=== PATIENT | male | born 1975 | race Caucasian/White ===

== ENCOUNTER 2017-07-15 11:04 | Observation (INO) ==
[2017-07-15] MEDS ORDERED: Nitroglycerin 0.4 MG TAB.SUBL SL ONE (11:14)
[2017-07-15] MEDS ORDERED: Aspirin 81 MG TAB.CHEW PO ONE (11:14)
[2017-07-15 11:56] LABS: Basophils % 0.4 %; Eosinophils # 0.1 K/mcL (0.0-0.6); Hemoglobin 17.8 g/dL (12.9-16.9); Immature Granulocytes % 0.2 % (0-4); Lymphocytes % 18.2 %; Mean Corpuscular HGB Conc 35.6 g/dL (31.6-35.5); Mean Corpuscular Hemoglobin 32.5 pg (28.0-33.3); Mean Corpuscular Volume 91.2 fL (83.0-100.0); Mean Platelet Volume 8.9 fL (9.4-12.4); Monocytes # 0.7 K/mcL (0.0-1.3); Monocytes % 6.6 %; Platelet Count 281 K/mcL (140-400); Red Blood Count 5.48 M/mcL (4.19-5.50); Red Cell Distribution Width 11.5 % (11.5-14.5); Segmented Neutrophils % 73.6 %
[2017-07-15 12:07] LABS: Calcium 10.2 mg/dL (8.6-10.3); Carbon Dioxide 24 mEq/L (23-29); Chloride 105 mEq/L (98-107); Potassium 3.7 mEq/L (3.5-5.1); Sodium 136 mEq/L (136-145)
[2017-07-15 12:13] LABS: BUN/Creatinine Ratio 17 (6-26); Blood Urea Nitrogen 15 mg/dL (6-20); Glucose 115 mg/dL (70-105); Osmolality,Calculated 284 (280-300); eGFR For African Americans > 60 (> 60); eGFR For Non-African Americans > 60 (> 60)
--- NOTE | 2017-07-15 12:55 | Emergency Department Note ---
Disposition Clinical Impression: Chest pain Qualifiers: Chest pain type: unspecified Qualified Code(s): R07.9 - Chest pain, unspecified Disposition: Admitted As Inpatient Chest Pain HPI - General Chief Complaint: ED Chest Pain Stated Complaint: CP Time Seen by Provider: 07/15/17 11:07 Source: patient, family Mode of arrival: ambulatory Limitations: no limitations Vital Signs Reviewed: Yes Nursing Notes Reviewed: Yes - History of Present Illness HPI Narrative: Patient presents to the hospital for evaluation of chest pain. Patient states chest pain has been intermittent exertional over the last year. Patient had workup done 8 [facility] where he was told he needed a cardiac catheterization was a little complete secondary to needing to move here to [place] for undisclosed circumstances. The patient states that over the last couple of days his chest pain has gotten worse. Patient has decreased ability to ambulate or walk up steps without chest pain. Chest pain is better with rest. This time the patient complains of current chest pain 610 described as pressure. He also has body aches and a mild cough that he is concerned about influenza or pneumonia. Patient will undergo further evaluation and likely admission for cardiac rule out. Severity scale (1-10): 8 - Related Data Home Medications Medication Instructions Recorded Confirmed Albuterol Sulfate [Albuterol 1 puff IH AD 12/08/16 07/15/17 Inhaler] Gabapentin [Neurontin] 800 mg PO TID 12/08/16 07/15/17 Tiotropium [Spiriva] 1 puff IH BID 12/08/16 07/15/17 Aspirin [Lo-Dose Aspirin EC] 81 mg PO DAILY 12/24/16 07/15/17 Cholecalciferol (D-3) [Vitamin D] 1,000 unit PO DAILY 12/24/16 07/15/17 Multivitamin [One Daily 1 each PO DAILY 12/24/16 07/15/17 Multivitamin] [place]-3/Dha/Epa/Fish Oil [Fish Oil 1 each PO DAILY 12/24/16 07/15/17 1,000 mg Softgel] Vitamin E (Dl,Tocopheryl Acet) 1,000 unit PO DAILY 12/24/16 07/15/17 [Vitamin E] Buprenorphine HCl/Naloxone HCl 1 film PO BID 07/15/17 07/15/17 [Suboxone 8 mg-2 mg Sl Film] Ciclopirox [Penlac] 1 appl TP DAILY 07/15/17 07/15/17 Fluticasone/Salmeterol [Advair 1 puff IH BID 07/15/17 07/15/17 250-50 Diskus] Ibuprofen [Motrin] 800 mg PO Q8HR PRN 07/15/17 07/15/17 Omeprazole [PriLOSEC] 40 mg PO DAILY 07/15/17 07/15/17 Ranitidine HCl [Zantac] 300 mg PO DAILY 07/15/17 07/15/17 Ropinirole HCl [Requip] 0.5 mg PO HS 07/15/17 07/15/17 Allergies Allergy/AdvReac Type Severity Reaction Status Date / Time Penicillins Allergy Anaphylaxis Verified 12/24/16 08:42 Review of Systems: CONSTITUTIONAL: No weight loss, fever, chills, weakness or fatigue. HEENT: Eyes: No visual changes. Ears, Nose, Throat: No hearing loss, difficulty talking or unable to swallow. SKIN: No rash or itching. CARDIOVASCULAR: Chest pain RESPIRATORY: Cough GASTROINTESTINAL: No anorexia, nausea, vomiting or diarrhea. No abdominal pain or blood. GENITOURINARY: No burning on urination or hematuria. NEUROLOGICAL: No headache, dizziness, syncope, paralysis, ataxia, numbness or tingling in the extremities. No change in bowel or bladder control. MUSCULOSKELETAL: Body aches Chest Pain PMH - Past Medical History Medical history: Reports: no medical history Psychiatric history: Reports: no psych history - Social History Smoking Status: Current every day smoker Alcohol use: Reports: none Drug use: Reports: none Physical Exam General: Well appearing, nontoxic, no acute distress Head: Normocephalic Atraumatic Eyes: PERRL, EOMI ENT: Airway patent, no stridor; very poor dentition Neck: supple, no meningismus Chest: Lungs clear to auscultation bilateral Cardiac: Regular rate and rhythm, no murmurs, rubs or gallops Abdomen: soft, nontender, nondistended; no guarding, rebound, or tenderness to percussion Musculoskeletal: Calves symmetric, nontender, no palpable cord Skin: No rash, normal skin tone Neuro: Alert and Oriented to person, place, and time; No focal deficit, CN 2-12 symmetric and intact - General General appearance: alert, in no apparent distress Course - Reevaluation(s) Reevaluation #1: Patient's chest pain did improve with nitroglycerin. Patient does state that he has some heaviness in his arm still. Left arm. Will request [facility] medical records. Patient be admitted for chest pain. - Consultations Consultation #1: Discussed with hospitalist. Patient accepted for admission. Vital Signs Temperature 99.5 F 07/15/17 11:15 Pulse Rate 85 07/15/17 11:15 Respiratory Rate 11 07/15/17 11:15 Blood Pressure 130/91 07/15/17 11:15 O2 Sat by Pulse Oximetry 98 07/15/17 11:15 Temperature 99.0 F 07/15/17 18:46 Pulse Rate 70 07/15/17 18:46 Respiratory Rate 17 07/15/17 18:46 Blood Pressure 115/76 07/15/17 18:46 O2 Sat by Pulse Oximetry 97 07/15/17 18:46 Oxygen Delivery Oxygen Delivery Room Air Chest Pain - Medical Records Medical records reviewed: Yes I reviewed the patient's medical records. - Lab Data Lab results reviewed: Yes I reviewed the patient's lab results. Result diagrams: 07/15/17 11:37 07/15/17 11:37 Lab Results 07/15/17 07/15/17 07/15/17 Range/Units 11:37 11:37 11:37 WBC 10.9 (4.3-11.1) K/mcL RBC 5.48 (4.19-5.50) M/mcL Hgb 17.8 H (12.9-16.9) g/dL Hct 50.0 (37.5-50.1) % MCV 91.2 (83.0-100.0) fL MCH 32.5 (28.0-33.3) pg MCHC 35.6 H (31.6-35.5) g/dL RDW 11.5 (11.5-14.5) % Plt Count 281 (140-400) K/mcL MPV 8.9 L (9.4-12.4) fL Immature Gran % 0.2 (0-4) % Seg Neutrophils % 73.6 % Lymphocytes % 18.2 % Monocytes % 6.6 % Eosinophils % 1.0 % Basophils % 0.4 % Neutrophils # 8.0 (1.6-8.9) K/mcL Lymphocytes # 2.0 (0.6-4.6) K/mcL Monocytes # 0.7 (0.0-1.3) K/mcL Eosinophils # 0.1 (0.0-0.6) K/mcL Basophils # 0.0 (0.0-0.2) K/mcL Sodium 136 (136-145) mEq/L Potassium 3.7 (3.5-5.1) mEq/L Chloride 105 (98-107) mEq/L Carbon Dioxide 24 (23-29) mEq/L BUN 15 (6-20) mg/dL Creatinine 0.89 (0.70-1.30) mg/dL Est GFR ( Amer) > 60 (> 60) Est GFR (Non-Af Amer) > 60 (> 60) BUN/Creatinine Ratio 17 (6-26) Glucose 115 H (70-105) mg/dL Calculated Osmolality 284 (280-300) Calcium 10.2 (8.6-10.3) mg/dL Troponin I < 0.03 (< 0.04) ng/mL - Radiology Data Radiology results reviewed: Yes I reviewed the patient's radiology results. - EKG Data EKG attestation: Yes I reviewed and interpreted this EKG. EKG results narrative: Sinus rhythm with significant ryja-vx-cmne variation and sinus arrhythmia. Ventricular rate 94.A 185. QRS 87. QTC 365. Attestation Statement - Attestation Attestation: I examined this patient and my medical decision-making was reviewed with the Resident Physician. I agree with the documented findings, disposition and treatment plan as described except to the extent set forth below. Patient to ED describing chest pressure. Increasing over the past 2 days. Patient has a history of similar episodes. He states he has had a positive stress test in the past but did not follow through with a heart catheter. On examination he is in no distress. Lungs clear. Plan. EKG does not show any acute ischemic changes. He will be admitted for further cardiac workup. Troponin is negative..
[2017-07-15] MEDS ORDERED: Naloxone 0.4 MG/ML INJ IVP PRN (13:22)
--- NOTE | 2017-07-15 13:31 | Internal Med History&Physical ---
<Terrance Guillen J - Last Filed: 07/15/17 13:24> Date of Encounter: 07/15/17 Time of Encounter: 13:24 Assessment and Plan (1) Chest pain Current visit: Yes Status: Acute ASSESSMENT: - Presents with a 1-year h/o left sided chest pain. There is some concern for CAD. He has a h/o HTN, and is a daily smoker. He reports having a positive stress test at the [facility] a couple of years ago. At that time he was instructed that he needed a heart cath but he moved from [place] and has not follow up or reestablished with a top carrier. *Pericarditis - unlikely *Pneumonia - no infiltrate on CXR PLAN: - cardiac enzymes x 2 q 6 hr - ASA 81mg dialy - O2 by NC PRN to keep SpO2 greater than 92% - CBC, BMP in AM - Fasting lipids - 2D Echo - Cardiology consult pending results of TTE and exercise stress Qualifiers: Chest pain type: unspecified Qualified Code(s): R07.9 - Chest pain, unspecified (2) Polycythemia Current visit: Yes Status: Acute Long-standing smoking history and COPD. The chronic hypoxemia is likely contributing to the secondary polycythemia. HGB 17 (3) HTN (hypertension) Current visit: Yes Status: Acute Reports a h/o HTN, however is not taking an antiHTN medications. Currently stable, continue to monitor. Add antiHTN medications should he become hypertensive Qualifiers: Hypertension type: essential hypertension Qualified Code(s): I10 - Essential (primary) hypertension (4) COPD (chronic obstructive pulmonary disease) Current visit: Yes Status: Acute Stable, continue home bronchodilators Qualifiers: Qualified Code(s): J44.9 - Chronic obstructive pulmonary disease, unspecified (5) Smoker Current visit: Yes Status: Acute Current daily smoker. Does not wish to quit at this time. Discussed ramifications of tobacco use and its associated risk with CAD. Discussed cessation. Offered nicotine patch but he refused. (6) DVT prophylaxis Current visit: Yes Status: Acute early ambulation Internal Medicine - H&P: HPI Chief complaint: chest pain Admitted From: Home Plans for Post Hospital Care: Home History of present illness: Mr. Brown is a 41 year old male with a PMH of COPD, HTN, and GERD. He presents to [facility] today with intermittent exertional left sided chest pain for the last year. However, he notes that it has been persistent since yesterday evening. He states that he is experiencing sharp, stabbing, left sided chest pain that is exacerbated with activity and improves with rest. He notes that it is becoming increasingly difficult to walk around his house without chest pain or shortness of breath. He is reporting diaphoresis and nausea with the chest pain as well. He denies any prior cardiac history. His pain is currently 3/10 at rest. He reports that he had a stress test done at the [facility] and that he was told that he would need a heart cath but he has never followed up since discharge. Additionally he is reporting a cough productive of green/yellow sputum, and generalized fatigue and body aches and is concerned for influenza. He denies any fevers, chills, abdominal pain, diarrhea, or unilateral extremity swelling/pain. Past Med Surg Social Fam HX - Past Medical History Medical history: no medical history Psychiatric history: no psych history - Social History Smoking Status: Current every day smoker Smokeless Tobacco Status: No Alcohol use: none Drug use: none - Family History Mother Living Status: Cause of : breast cancer Father Living Status: Cause of : non-hodgkins lymphoma Sister Hx Family Endocrine Disorder: Yes (DM) Internal Medicine - H&P: Meds Albuterol Sulfate [Albuterol Inhaler] 1 puff IH AD 12/08/16 [History] Gabapentin [Neurontin] 800 mg PO TID 12/08/16 [History] Tiotropium [Spiriva] 1 puff IH BID 12/08/16 [History] Aspirin [Lo-Dose Aspirin EC] 81 mg PO DAILY 12/24/16 [History] Cholecalciferol (D-3) [Vitamin D] 1,000 unit PO DAILY 12/24/16 [History] Multivitamin [One Daily Multivitamin] 1 each PO DAILY 12/24/16 [History] [place]-3/Dha/Epa/Fish Oil [Fish Oil 1,000 mg Softgel] 1 each PO DAILY 12/24/16 [ History] Vitamin E (Dl,Tocopheryl Acet) [Vitamin E] 1,000 unit PO DAILY 12/24/16 [History ] Buprenorphine HCl/Naloxone HCl [Suboxone 8 mg-2 mg Sl Film] 1 film PO BID [History] Ciclopirox [Penlac] 1 appl TP DAILY 07/15/17 [History] Fluticasone/Salmeterol [Advair 250-50 Diskus] 1 puff IH BID 07/15/17 [History] Ibuprofen [Motrin] 800 mg PO Q8HR PRN 07/15/17 [History] Omeprazole [PriLOSEC] 40 mg PO DAILY 07/15/17 [History] Ranitidine HCl [Zantac] 300 mg PO DAILY 07/15/17 [History] Ropinirole HCl [Requip] 0.5 mg PO HS 07/15/17 [History] 3 Allergy/AdvReac Type Severity Reaction Status Date / Time Penicillins Allergy Anaphylaxis Verified 12/24/16 08:42 All Systems PM: A 10-system review of systems was performed and is negative for pertinent findings except as documented above in the HPI. - Constitutional Constitutional: excessive sweating, fatigue, no chills, no fever(s) - EENT Eyes: no change in vision, no discharge, no pain, no photophobia Nose, mouth and throat: no dysphagia, no nasal discharge, no neck pain, no sore throat - Cardiovascular Cardiovascular ROS IM: as per HPI, chest pain, diaphoresis, dyspnea, dyspnea on exertion, irregular heart rhythm, lightheadedness (with activity), palpitations , no edema, no syncope - Respiratory Respiratory: as per HPI, cough, dyspnea, dyspnea on exertion, pain on inspiration (mild), pain with cough (mild), no hemoptysis - Gastrointestinal Gastrointestinal: no abdominal pain, no diarrhea, no hematemesis, no hematochezia, no melena, no nausea, no vomiting - Genitourinary Genitourinary ROS male: no difficulty urinating, no dysuria, no flank pain - Musculoskeletal Musculoskeletal ROS IM: no numbness, no tingling - Integumentary Integumentary IM: no rash, no unusual bruising - Neurological Neurological ROS: no confusion, no convulsions, no focal weakness, no numbness, no tingling, no tremor(s) - Constitutional Vitals: Temp Pulse Resp BP Pulse Ox 99.5 F 78 15 130/91 98 07/15/17 11:15 07/15/17 13:15 07/15/17 13:15 07/15/17 11:15 07/15/17 13:15 General appearance: Present: cooperative, A&O X 3, no acute distress, answers questions appropriately - Head Head exam: Present: atraumatic, normocephalic - Eye Eye exam: Present: PERRL, conjuntiva pink, sclera anicteric Pupils: Present: PERRL - Neck Neck exam general surgery: Present: supple, trachea midline. Absent: lymphadenopathy - Respiratory Respiratory exam: Present: CTAB. Absent: accessory muscle use, rales, rhonchi, wheezes - Cardiovascular Cardiovascular exam: Present: irregular rhythm, +S1, +S2. Absent: diastolic murmur, gallop, rubs, systolic murmur, tachycardia - GI/Abdominal GI/Abdominal exam: Present: normal bowel sounds, soft, no peritoneal signs. Absent: distended, tenderness - Extremities Exam Extremities exam: Present: warm, radial pulses palpable and symmetrical. Absent : calf tenderness, cyanotic, pedal edema - Neurological Exam Neurological exam: Present: alert, oriented X3. Absent: facial droop, speech deficit - Skin Skin exam: Present: dry, intact Internal Med - H&P Results - Labs CBC & Chem 7: 07/15/17 11:37 07/15/17 11:37 Labs: Short CBC 07/15/17 Range/Units 11:37 WBC 10.9 (4.3-11.1) K/mcL Hgb 17.8 H (12.9-16.9) g/dL Hct 50.0 (37.5-50.1) % Plt Count 281 (140-400) K/mcL Neutrophils # 8.0 (1.6-8.9) K/mcL BMP 07/15/17 11:37 Sodium 136 Potassium 3.7 Chloride 105 Carbon Dioxide 24 BUN 15 Creatinine 0.89 Glucose 115 H Calcium 10.2 Cardiac Enzymes 07/15/17 Range/Units 11:37 Troponin I < 0.03 (< 0.04) ng/mL - EKG Data -: EKG Interpreted by Myself EKG shows normal: sinus rhythm - EKG Data Prior EKG available for review: yes When compared to previous EKG: there is no significant change Interpretation IM: normal EKG EKG comments: Sinus rhythm with sinus arrhythmia rate of 94; no ST elevations or depressions noted, no changes from prior EKG 07/15/17 13:35 - Impressions ITS Impressions Chest X-Ray 07/15/17 11:15 IMPRESSION: No radiographic evidence of acute cardiopulmonary disease. D/ / Haresh Lucas / Haresh Lucas Interpreting Provider: Haresh uLcas <Cheyenne Finch - Last Filed: 07/15/17 16:48> Date of Encounter: 07/15/17 Internal Medicine - H&P: HPI History of present illness: Mr. Brown is a 41 year old male All Systems PM: A 10-system review of systems was performed and is negative for pertinent findings except as documented above in the HPI. - Constitutional Vitals: Temp Pulse Resp BP Pulse Ox 98.8 F 63 18 106/71 98 07/15/17 15:25 07/15/17 15:25 07/15/17 15:25 07/15/17 15:25 07/15/17 15:25 Internal Med - H&P Results - Labs CBC & Chem 7: 07/15/17 11:37 07/15/17 11:37 - Attending Attestation I have personally performed a face to face evaluation on this patient. I have reviewed and agree with the care plan provided by SULEMAN Guillen. History and Exam by me shows: Mr. Brown is a 41 year old male with a PMH of COPD, HTN, GERD and substance abuse pt who presented to ER with left chest wall pain radiating to his left arm since y/d. Pt stated after taking a couple of ASA he is feeling better now. Gen: A, A, O x 3 Chest: CTA, No wheezing no crackles Heart: S1S2+ a/p 1. Acute chest pain check serial trop on tele stress test in AM will obtain MR's from [facility]
[2017-07-15] MEDS: Gabapentin 400 MG CAPSULE PO SCH ×2 (16:02→20:13)
--- NOTE | 2017-07-15 16:10 | Electrocardiograph Report ---
[facility] Test Date: 2017-07-15 Pat Name: Juan Brown Department: 103 Room: 3B22 Gender: M [employer]: : 1975 Requested By: Rosa See Order Number: [id number] Reading MD: Kael Hannah DO Measurements Intervals [place] Rate: 94 P: 71 RI: 185 QRS: 1 QRSD: 87 T: 47 QT: 313 QTc: 365 Interpretive Statements SINUS RHYTHM WITH MARKED SINUS ARRHYTHMIA INTERPRETATION BASED ON A DEFAULT AGE OF 40 YEARS Electronically Signed On 07-15-2017 16:09:10 EST by Kael Hannah DO
[2017-07-15] MEDS ORDERED: Perflutren Lipid Microsphere 1.3 ML in 0.9 % Sodium Chloride 8.7 ML IVP ONE (16:20)
[2017-07-15] MEDS: rOPINIRole 1 MG TABLET PO SCH (20:13)
[2017-07-15] MEDS: (Buprenorphine Hcl/Naloxone Hcl [Suboxone 8 Mg-2 Mg S) PO SCH (20:15)
[2017-07-15] MEDS: Tiotropium 18 MCG inhalation IH SCH (21:09)
[2017-07-15] MEDS: Budesonide/Formoterol 80/4.5 MDI IH SCH (21:09)
[2017-07-15 21:13] LABS: Amphetamine Screen,Urine Negative ng/mL (Cutoff=1000); Barbiturate Screen,Urine Negative ng/mL (Cutoff=200); Benzodiazepines Screen,Urine Negative ng/mL (Cutoff=200); Cannabinoid Screen,Urine Negative ng/mL (Cutoff = 50); Cocaine Screen,Urine Negative ng/mL (Cutoff= 300); Opiate Screen,Urine Negative ng/mL (Cutoff=300); Phencyclidine Screen,Urine Negative ng/mL (Cutoff=25)
[2017-07-16 04:35] LABS: Hematocrit 46.3 % (37.5-50.1); Hemoglobin 16.5 g/dL (12.9-16.9); Mean Corpuscular HGB Conc 35.6 g/dL (31.6-35.5); Mean Corpuscular Hemoglobin 32.7 pg (28.0-33.3); Mean Corpuscular Volume 91.7 fL (83.0-100.0); Mean Platelet Volume 9.1 fL (9.4-12.4); Platelet Count 292 K/mcL (140-400); Red Blood Count 5.05 M/mcL (4.19-5.50); Red Cell Distribution Width 11.6 % (11.5-14.5)
[2017-07-16 05:00] LABS: Calcium 9.3 mg/dL (8.6-10.3); Carbon Dioxide 29 mEq/L (23-29); Chloride 105 mEq/L (98-107); Potassium 3.6 mEq/L (3.5-5.1); Sodium 139 mEq/L (136-145)
[2017-07-16 05:06] LABS: BUN/Creatinine Ratio 17 (6-26); Blood Urea Nitrogen 14 mg/dL (6-20); Chol/HDL Ratio 5.1 (0-4.9); Cholesterol 127 mg/dL (< 200); Glucose 114 mg/dL (70-105); HDL Cholesterol 25 mg/dL (40-59); LDL Cholesterol,Calculated 80 mg/dL (0-99); Osmolality,Calculated 289 (280-300); Triglycerides 111 mg/dL (< 150); eGFR For African Americans > 60 (> 60); eGFR For Non-African Americans > 60 (> 60)
[2017-07-16] MEDS ORDERED: NON-FORMULARY MEDICATION 1 EACH EACH (Omeprazole [Prilosec] 40 MG) PO SCH (09:00)
[2017-07-16] MEDS ORDERED: Regadenoson 0.4 MG/5 ML SYRINGE IVP ONE (09:11)
[2017-07-16] MEDS: Tiotropium 18 MCG inhalation IH SCH ×2 (10:41→19:50)
[2017-07-16] MEDS: Budesonide/Formoterol 80/4.5 MDI IH SCH ×2 (10:42→19:50)
[2017-07-16] MEDS: (Buprenorphine Hcl/Naloxone Hcl [Suboxone 8 Mg-2 Mg S) PO SCH ×2 (12:12→21:53)
[2017-07-16] MEDS: (Omega-3/Dha/Epa/Fish Oil [Fish Oil 1,000 Mg Softgel]) PO SCH (12:13)
[2017-07-16] MEDS: Cholecalciferol (D-3) 1,000 UNIT TABLET PO SCH (12:15)
[2017-07-16] MEDS: Aspirin Enteric Coated 81 MG Tablet PO SCH (12:15)
[2017-07-16] MEDS: Multivit/Ca/Min/Fe/FA 1 TAB TABLET PO SCH (12:15)
[2017-07-16] MEDS: Gabapentin 400 MG CAPSULE PO SCH ×3 (12:15→21:56)
[2017-07-16] MEDS: Famotidine 20 MG TABLET PO SCH ×2 (12:15→21:56)
--- NOTE | 2017-07-16 13:28 | Internal Med Progress Note ---
Date of Encounter: 07/16/17 Time of Encounter: 13:28 - Assessment and plan (1) Chest pain Current Visit: Yes Status: Acute Assessment and plan: Patient presents with a 1-year h/o left sided chest pain. There is some concern for CAD. He has a h/o HTN and is a daily smoker. He reports having a positive stress test at the [facility] a couple of years ago. At that time he was instructed that he needed a heart cath but he moved from [place] and has not follow up or reestablished with a escrow secretary.Pericarditis is unlikely, no infiltrates on chest x-ray so likely not pneumonia. Stress test has been completed and impression is: low level exercise/ pharmacologic stress ECG is negative for ischemia at level of heart rate achieved. Chest discomfort prior to, during, and after the study. Gated EF equals 72%. Small sized, moderate intensity, partially reversible defect involving the apical septal and apex segments possibly due to ischemia. Cardiology has been consult it Serial troponins less than 0.03. Continue aspirin 81mg dialy O2 by DC NEEDED to keep SpO2 greater than 92% Fasting lipids reviewed with cholesterol 127, LDL cholesterol 80, HDL cholesterol 25, cholesterol HDL ratio 5.1 and triglycerides 111. 2D Echo is pending Qualifiers: Chest pain type: unspecified Qualified Code(s): R07.9 - Chest pain, unspecified (2) COPD (chronic obstructive pulmonary disease) Current Visit: Yes Status: Chronic Assessment and plan: Non-exacerbated continue home bronchodilators Smoking cessation Qualifiers: COPD type: unspecified COPD Qualified Code(s): J44.9 - Chronic obstructive pulmonary disease, unspecified (3) HTN (hypertension) Current Visit: Yes Status: Chronic Assessment and plan: Blood Pressure is 100/64, 121/71, and 106/68 respectively Patient reports history of hypertension but is on no home medications and his blood pressure appears stable off medications will continue to monitor Qualifiers: Hypertension type: essential hypertension Qualified Code(s): I10 - Essential (primary) hypertension (4) DVT prophylaxis Current Visit: Yes Status: Acute Assessment and plan: Ambulation and heparin subcutaneous (5) Polycythemia Current Visit: Yes Status: Chronic Assessment and plan: Hemoglobin 17, long-standing smoking history and COPD. Chronic hypoxemia is likely contributing to the secondary polycythemia (6) Smoker Current Visit: Yes Status: Acute Assessment and plan: Current daily smoker with no desire to quit. Discussed smoking cessation should be advised especially with CAD. Nicotine patch offered but he refused. - Subjective Interval history: Patient is sitting up in bed in no distress on room air. He has some family members at the bedside. Discussed the positive findings on the stress test and he stated "I am not surprised" he did have a positive stress testing a few multiple years ago and had no follow-up. I explained to cardiology was on consult and will come by to see him. He denies any current chest pain, shortness of breath, fever, chills, sweats or dizziness. - Constitutional Vitals: Temp Pulse Resp BP Pulse Ox 98.2 F 84 16 106/68 95 07/16/17 11:32 07/16/17 11:32 07/16/17 11:32 07/16/17 11:32 07/16/17 11:32 General appearance: Present: cooperative, A&O X 3, pleasant, answers questions appropriately - Head Head exam: Present: atraumatic, normocephalic - Eye Eye exam: Present: PERRL, conjuntiva pink, sclera anicteric Pupils: Present: PERRL - Neck Neck exam general surgery: Present: supple, trachea midline. Absent: lymphadenopathy - Respiratory Respiratory exam: Present: CTAB. Absent: accessory muscle use, rales, rhonchi, wheezes - Cardiovascular Cardiovascular exam: Present: RRR, +S1, +S2. Absent: diastolic murmur, gallop, rubs, systolic murmur - GI/Abdominal GI/Abdominal exam: Present: normal bowel sounds, soft, no peritoneal signs. Absent: distended, tenderness - Extremities Exam Extremities exam: Present: warm, radial pulses palpable and symmetrical. Absent : calf tenderness, cyanotic, pedal edema - Neurological Exam Neurological exam: Present: alert, CN II-XII intact, normal gait, oriented X3, no focal deficits, strengths equal and symetr throughout. Absent: pronater drift, facial droop, speech deficit - Skin Skin exam: Present: dry, intact, warm Internal Medicine: Result - Labs CBC & Chem 7: 07/16/17 03:35 07/16/17 03:35 Labs: Short CBC 07/16/17 Range/Units 03:35 WBC 10.2 (4.3-11.1) K/mcL Hgb 16.5 (12.9-16.9) g/dL Hct 46.3 (37.5-50.1) % Plt Count 292 (140-400) K/mcL BMP 07/16/17 03:35 Sodium 139 Potassium 3.6 Chloride 105 Carbon Dioxide 29 BUN 14 Creatinine 0.83 Glucose 114 H Calcium 9.3 Cardiac Enzymes 07/15/17 07/15/17 Range/Units 17:35 22:19 Troponin I < 0.03 < 0.03 (< 0.04) ng/mL Consult Discharge Plan - Plan Referrals: Chuy Sylvester MD [Primary Care Provider] -
--- NOTE | 2017-07-16 15:07 | Cardiology Consult Note ---
Addendum entered and electronically signed by Praveen Sandoval CNP 07/16/17 16:48 : Patient appears to have hx of adrenal hyperplasia syndrome. Has pending f/u with Nephrology and reports had been taking Florinef and Prednisone his "entire life until recently". Noted reviewed and appears to have hx of adrenal insufficiency. Kidney fxn stable. Original Note: <Praveen Sandoval - Last Filed: 07/16/17 16:12> Date of Encounter: 07/16/17 Time of Encounter: 15:00 Assessment and Plan (1) Chest pain Current Visit: Yes Status: Acute TPer Cardiology: Troponins negative 3. Symptoms appear to be mainly occurring with exertional activities and concerning for angina. Currently chest pain-free. Qualifiers: Chest pain type: unspecified Qualified Code(s): R07.9 - Chest pain, unspecified (2) Abnormal nuclear stress test Current Visit: Yes Status: Acute Per Cardiology: Nuclear stress test showed small sized, moderate intensity, partially reversible defect involving the apical septal and apex segments possibly due to ischemia. Had lengthy discussion with patient and today and he prefers to proceed with left heart catheterization for further evaluation of symptoms and regarding his abnormal stress test results. Plan for catheterization tomorrow. Currently on aspirin. EF on echo preserved. Further recommendations after catheterization. Discussed and reviewed with Dr. Zee. (3) Smoker Current Visit: Yes Status: Chronic Per Cardiology: Smokes about one pack per day for the past 15 years. Reports currently smoke- free for the past 10 days. Smoking cessation highly encouraged. Discussion w patient/family: The assessment and plan as outlined above was discussed with the patient and/or family members who expressed understanding and agreement. All questions were answered. Thank you for involving us in the care of your patient. Please call with any questions. History of Present Illness Consult date: 07/16/17 Consult reason: Chest pain, abnormal stress test Chief complaint: CP History of present illness: Mr. Brown is a 41 year old male with a relevant past medical history of asthma/ COPD, nicotine abuse, adrenal insufficiency, GERD, obstructive sleep apnea-- does not use CPAP. Cardiology consult for chest pain and abnormal stress test results. Patient seen with . He reports over the past one year increased frequency of exertional chest rash or/midsternal burning symptoms with exertion. He reports overall increase in frequency and occurring every other day. He reports relieved with rest after a few minutes. He reports accompanying symptoms of left arm pain and numbness with palpitations, short of breath, diaphoresis. Denies any past history of CAD. Has never had left heart catheterization. Continues to smoke one pack per day for 15 years. Reports father from non- Hodgkin's lymphoma in his 40s with concern of possible [place]" dying on the [employer] table ". Reports history of intermittent bright red blood with bowel movements/constipation. Reports previous evaluation noted to have hemorrhoids with no surgical intervention. Denies any current active bleeding or blood loss. Denies any black/dark tarry stools. Patient also reports increasing overall dyspnea on exertion and fatigue over the past few months as well. Past Med Surg Social Fam HX - Past Medical History Attestation: Yes The following information was validated with the patient. Source: patient, old records reviewed, obtained from family Medical history: GERD Psychiatric history: no psych history - Social History Smoking Status: Current every day smoker Packs per day: 0.5 Smokeless Tobacco Status: No Alcohol use: none Drug use: none - Family History Mother Living Status: Cause of : breast cancer Father Living Status: Cause of : non-hodgkins lymphoma Sister Hx Family Endocrine Disorder: Yes (DM) Medications and Allergies Albuterol Sulfate [Albuterol Inhaler] 1 puff IH AD 12/08/16 [History] Gabapentin [Neurontin] 800 mg PO TID 12/08/16 [History] Tiotropium [Spiriva] 1 puff IH BID 12/08/16 [History] Aspirin [Lo-Dose Aspirin EC] 81 mg PO DAILY 12/24/16 [History] Cholecalciferol (D-3) [Vitamin D] 1,000 unit PO DAILY 12/24/16 [History] Multivitamin [One Daily Multivitamin] 1 each PO DAILY 12/24/16 [History] Hector-3/Dha/Epa/Fish Oil [Fish Oil 1,000 mg Softgel] 1 each PO DAILY 12/24/16 [ History] Vitamin E (Dl,Tocopheryl Acet) [Vitamin E] 1,000 unit PO DAILY 12/24/16 [History ] Buprenorphine HCl/Naloxone HCl [Suboxone 8 mg-2 mg Sl Film] 1 film PO BID [History] Ciclopirox [Penlac] 1 appl TP DAILY 07/15/17 [History] Fluticasone/Salmeterol [Advair 250-50 Diskus] 1 puff IH BID 07/15/17 [History] Ibuprofen [Motrin] 800 mg PO Q8HR PRN 07/15/17 [History] Omeprazole [PriLOSEC] 40 mg PO DAILY 07/15/17 [History] Ranitidine HCl [Zantac] 300 mg PO DAILY 07/15/17 [History] Ropinirole HCl [Requip] 0.5 mg PO HS 07/15/17 [History] 3 Allergy/AdvReac Type Severity Reaction Status Date / Time Penicillins Allergy Anaphylaxis Verified 12/24/16 08:42 All Systems Review: The remainder of the systems were reviewed and are negative - Constitutional Constitutional: fatigue - Cardiovascular Cardiovascular: as per HPI, chest pain with exertion, dyspnea on exertion, radiating jaw, neck or arm pain, palpitations - Respiratory Respiratory: dyspnea Physical Examination Vital Signs, Last 4 Hours Temp Pulse Resp BP Pulse Ox 07/16/17 14:51 16 95 07/16/17 11:32 98.2 F 84 16 106/68 95 General: Conversant, No Apparent Distress HEENT: Atraumatic, Normocephaly, Mucus Membranes Moist Neck: No JVD, Normal carotid pulses Cardiac: Reg Rate and Rhythm, Normal S1 and S2, No Murmur Lungs: Normal Breath Sounds, No Wheeze, Rales, Rhonchi Neuro: Alert and responsive, No focal deficits noted Abdomen: Soft, Non-Tender Skin: No rashes noted on visualized skin Musculoskeletal: No Chest Wall Tenderness Extremities: No Clubbing, No Cyanosis, No Edema, Normal Pulses Results 07/16/17 03:35 07/16/17 03:35 Lab Results Laboratory Tests 07/15/17 07/15/17 07/15/17 11:37 17:35 20:30 Hgb Hct Troponin I < 0.03 < 0.03 LDL Cholesterol, Calc Urine Opiates Screen Negative Ur Barbiturates Screen Negative Ur Phencyclidine Scrn Negative Ur Amphetamines Screen Negative U Benzodiazepines Scrn Negative Urine Cocaine Screen Negative U Marijuana (THC) Screen Negative 07/15/17 07/16/17 07/16/17 22:19 03:35 03:35 Hgb 16.5 Hct 46.3 Troponin I < 0.03 LDL Cholesterol, Calc 80 Urine Opiates Screen Ur Barbiturates Screen Ur Phencyclidine Scrn Ur Amphetamines Screen U Benzodiazepines Scrn Urine Cocaine Screen U Marijuana (THC) Screen ITS Impressions Chest X-Ray 07/15/17 11:15 IMPRESSION: No radiographic evidence of acute cardiopulmonary disease. D/ / Haresh Lucas / Haresh Lucas Interpreting Provider: Haresh Lucas Echocardiogram 07/15/17 13:21 Impressions: LVEF 60%. Normal LV chamber size, wall thickness and function. Mild left ventricular diastolic dysfunction. Normal right ventricular structure and function. No evidence of pulmonary hypertension. No significant valvular dysfunction. Left Ventricular Wall Motion: Rest Echo Findings All wall segments showed normal motion. Findings: Study Quality * Technically adequate exam. ECG Findings * Normal sinus rhythm. Left Ventricle * LVEF 60%. * Normal LV chamber size, wall thickness and function. * Mild left ventricular diastolic dysfunction. Right Ventricle * Normal right ventricular structure and function. Left Atrium * Mildly dilated left atrium. Right Atrium * Mildly dilated right atrium. Interatrial Septum * Interatrial septum not well evaluated. Aortic Valve * Aortic valve not well visualized. * No aortic regurgitation. * No aortic stenosis. Mitral Valve * Normal mitral valve structure and function. * No mitral regurgitation. * No mitral stenosis. Tricuspid Valve * Normal tricuspid valve structure and function. * Trace tricuspid regurgitation. * No evidence of pulmonary hypertension. Pulmonic Valve * Normal pulmonic valve structure and function. * No pulmonic regurgitation. Aorta * Normally sized aortic root. Pericardium * The pericardium appears normal. IVC * Normal IVC dimensions and inspiratory collapse. Pulmonary Artery * Normal visualized portions of the main pulmonary artery. Active Medications Albuterol Sulfate (Albuterol Inhaler) 2 puff IH [id number] COUNT INCLUDES THE [facility] Stop: 01/14/18 22:01 Last Admin: 07/16/17 14:49 Dose: 2 puff Aspirin (Aspirin Ec) 81 mg PO DAILY COUNT INCLUDES THE [facility] Stop: 01/15/18 09:01 Last Admin: 07/16/17 12:15 Dose: 81 mg Budesonide/Formoterol Fumarate (Symbicort) 2 puff IH BIDR VLADIMIR Stop: 01/14/18 22:01 Last Admin: 07/16/17 10:42 Dose: 2 puff Famotidine (Pepcid) 20 mg PO BID VLADIMIR Stop: 01/15/18 09:01 Last Admin: 07/16/17 12:15 Dose: 20 mg Gabapentin (Neurontin) 800 mg PO TID VLADIMIR Stop: 01/14/18 15:01 Last Admin: 07/16/17 12:15 Dose: 800 mg Multivitamins/Calcium (Thera M Plus) 1 tab PO DAILY VLADIMIR Stop: 01/15/18 09:01 Last Admin: 07/16/17 12:15 Dose: 1 tab Naloxone HCl (Narcan) 0.4 mg IVP Q2MIN PRN PRN Reason: SEE COMMENTS Stop: 01/14/18 13:23 Pharmacy Profile Note (Patient Taking Own Medication) 0 each PO BID VLADIMIR Stop: 01/14/18 21:01 Last Admin: 07/16/17 12:12 Dose: Not Given Pharmacy Profile Note (Patient Taking Own Medication) 0 each PO DAILY VLADIMIR Stop: 01/15/18 09:01 Last Admin: 07/16/17 12:13 Dose: Not Given Ropinirole HCl (Requip) 0.5 mg PO HS VLADIMIR Stop: 01/14/18 21:01 Last Admin: 07/15/17 20:13 Dose: 0.5 mg Tiotropium [place] (Spiriva) 18 mcg IH BID VLADIMIR Stop: 01/14/18 21:01 Last Admin: 07/16/17 10:41 Dose: 18 mcg Vitamin D (Vitamin D) 1,000 unit PO DAILY VLADIMIR Stop: 01/15/18 09:01 Last Admin: 07/16/17 12:15 Dose: 1,000 unit Vitamin E (Vitamin E) 200 unit PO DAILY VLADIMIR Stop: 01/15/18 09:01 Last Admin: 07/16/17 12:15 Dose: 200 unit - Imaging and Cardiology Chest Xray: report reviewed Stress Test: report reviewed Echo: report reviewed - EKG Interpretation EKG results cardiology: personally reviewed, normal ECG, sinus rhythm, no diagnostic ischemia Consult Discharge Plan - Plan Referrals: Chuy Sylvester MD [Primary Care Provider] - <Yasmin Zee - Last Filed: 07/16/17 17:17> Date of Encounter: 07/16/17 - Attending Attestation I examined this patient and my medical decision-making was reviewed with the [employer]. I agree with the documented findings, disposition and treatment plan as described. Patient presents with chest pain appearing somewhat typical occurring with exertion. Troponins negative. Now chest pain free. Stress test demonstrates possible ischemia with a moderate intensity defect. Discussed options with patient including conservative medical management vs and invasive approach. Has a long history of nicotine abuse. The R/B/A of [facility] were discussed with the patient. He expressed understanding of the potential risks. He would like to proceed. Renal function normal. Assessment and Plan Discussion w patient/family: The assessment and plan as outlined above was discussed with the patient and/or family members who expressed understanding and agreement. All questions were answered. Thank you for involving us in the care of your patient. Please call with any questions. History of Present Illness History of present illness: Mr. Brown is a 41 year old male All Systems Review: The remainder of the systems were reviewed and are negative Physical Examination Vital Signs, Last 4 Hours Temp Pulse Resp BP Pulse Ox 07/16/17 15:45 99.5 F 83 18 112/69 99 07/16/17 14:51 16 95 Results 07/16/17 03:35 07/16/17 03:35 Lab Results 07/15/17 07/15/17 07/16/17 17:35 22:19 03:35 WBC 10.2 Hgb 16.5 Hct 46.3 Plt Count 292 Sodium Potassium Chloride Carbon Dioxide BUN Creatinine Glucose Calcium Troponin I < 0.03 < 0.03 07/16/17 03:35 WBC Hgb Hct Plt Count Sodium 139 Potassium 3.6 Chloride 105 Carbon Dioxide 29 BUN 14 Creatinine 0.83 Glucose 114 H Calcium 9.3 Troponin I
[2017-07-16] MEDS: *HR* Heparin 5,000 UNIT/ML VIAL SQ SCH ×2 (18:25→22:50)
[2017-07-16] MEDS: rOPINIRole 1 MG TABLET PO SCH (21:55)
[2017-07-17] MEDS: *HR* Heparin 5,000 UNIT/ML VIAL SQ SCH (06:17)
[2017-07-17] MEDS: Tiotropium 18 MCG inhalation IH SCH (07:37)
[2017-07-17] MEDS: Budesonide/Formoterol 80/4.5 MDI IH SCH (07:37)
[2017-07-17 07:46] LABS: INR 1.1; Prothrombin Time 11.8 Seconds (9.4-12.1)
[2017-07-17] MEDS: (Omega-3/Dha/Epa/Fish Oil [Fish Oil 1,000 Mg Softgel]) PO SCH (07:53)
[2017-07-17] MEDS: (Buprenorphine Hcl/Naloxone Hcl [Suboxone 8 Mg-2 Mg S) PO SCH (07:53)
[2017-07-17] MEDS: Gabapentin 400 MG CAPSULE PO SCH (08:05)
[2017-07-17] MEDS: Aspirin Enteric Coated 81 MG Tablet PO SCH (08:06)
[2017-07-17] MEDS: Multivit/Ca/Min/Fe/FA 1 TAB TABLET PO SCH (08:06)
[2017-07-17] MEDS: Famotidine 20 MG TABLET PO SCH (08:06)
[2017-07-17] MEDS: Cholecalciferol (D-3) 1,000 UNIT TABLET PO SCH (08:06)
--- NOTE | 2017-07-17 09:44 | Event Note ---
Date of Encounter: 07/17/17 Time of Encounter: 09:20 - Cardiology Event Note Family at bedside. Confirms hx of Adrenal Hyperplasia Syndrome. Patient has been off steroids for at least past 5 years. Reports historically has been premedicated with steroids prior to surgeries. Discussed with Dr. Zee and Dr. Shelby and primary service, patient will be premedicated with steroids prior to LHC today. Plan for LHC today. Patient and family aware of plan and verbalized understanding. All questions answered. Further recs after LHC. Laboratory Tests 07/16/17 07/17/17 03:35 07:33 INR 1.1 Creatinine 0.83 Est GFR (Non-Af Amer) > 60
[2017-07-17] MEDS ORDERED: 0.9 % Sodium Chloride 1,000 ML ONE ×2 (09:49→10:18)
[2017-07-17] MEDS ORDERED: *HR* FentaNYL (PF) 100 MCG/2 ML VIAL ONE ×2 (09:49→10:33)
[2017-07-17] MEDS ORDERED: *HR* Midazolam HCl 2 MG/2 ML VIAL ONE ×2 (09:49→10:32)
[2017-07-17] MEDS ORDERED: Nitroglycerin 1,000 MCG/10 ML VIAL IV ONE (09:50)
[2017-07-17] MEDS ORDERED: Heparin 1,000 UNITS/500 mL 500 ML ONE (09:50)
[2017-07-17] MEDS ORDERED: ISOVUE-370 200 ML INFUS..BTL IV ONE (09:50)
[2017-07-17] MEDS ORDERED: *HR* Heparin 10,000 UNIT/10 ML VIAL ONE (09:50)
[2017-07-17] MEDS ORDERED: Hydrocortisone Sodium Succ 100 MG/2 ML VIAL ONE (10:07)
--- NOTE | 2017-07-17 10:32 | Pre-Sedation Evaluation ---
Pre-sedation evaluation - Pre-sedation checklist Date of procedure: 07/17/17 Procedure: Heart Cath Recent Vitals: Last Vital Signs Temp 98.8 F 07/17/17 07:47 Pulse 78 07/17/17 07:47 Resp 14 07/17/17 07:47 BP 110/73 07/17/17 07:47 Pulse Ox 99 07/17/17 07:47 H&P (including ROS) documented in medical record: Yes Previous reaction to sedatives/anesthetics: No Dietary Status: NPO after Midnight Dentition: No loose teeth or bridges ASA Classification *see protocol: CLASS II-Mild systemic disease Plan of Care: Pt appropriate candidate for procedure/moderate/conscious sedation
--- NOTE | 2017-07-17 11:18 | Invasive Diagnostic Lab Proc ---
Name: Juan Brown Date of Study: 07/17/2017 Date: 1975 Ht: 68.9in Medical Record#: [id number] Age: 41 Wt: 205.03lb Gender: Male BSA: 2.09 Order #: [id number] BMI: 30.37 Physicians Procedure Physician: Laura Shelby MD Referring MD: Referring MD: Staff Name Position Time In Kerry Alo RN Monitor 10:17 AM Jaskaran Boggs RT (R) Scrub 10:17 AM Channing Jones RN Director Financial Services 10:17 AM Indications Indication Abnormal Test - Stress Procedures Performed Procedure L HRT ARTERY/VENTRICLE ANGIO Pre-Procedure Checklist Informed consent is complete signed and on chart. H&P is on chart. ID band is on and ID verified with patient. Patient NPO for procedure The procedure was described for the patient and questions were answered. Blood Pressure: 102/66 ECG is on chart. Plan of Care Patient will tolerate the procedure without complications. Adequate level of comfort will be maintained. Hemodynamics will remain stable Patient will recover from procedure without complications. Respiratory function will be maintained. Cardiac rhythm will remain stable. Patient temperature will be maintained. Patient and/or family have verbalized understanding of the procedure. Patient Education Intravenous Access Time IV Size Location DC'd Fluid/Drip Rate Units RN 09:53 AM 18g 1 05/28" Patent On Arrival Rt Antecubital Allergies Penicillin Penicillins Penicillinase Vital Signs Time BP (mmHg) HR (bpm) O2 Sat. RR (bpm) LOC 10:20 AM / % 5 = Fully awake and oriented or at pre-proc level 10:20 AM / % 4 = Oriented but drowsy 10:35 AM / % 4 = Oriented but drowsy 10:20 AM 117 / 74 77 100 % 14 10:25 AM 109 / 71 77 100 % 18 10:30 AM 113 / 74 80 100 % 8 10:35 AM 105 / 73 72 96 % 14 10:40 AM 117 / 70 83 100 % 13 10:45 AM 111 / 75 80 100 % 19 10:50 AM 112 / 72 87 99 % 14 10:55 AM 109 / 73 75 100 % 21 11:00 AM 110 / 40 80 100 % 5 11:05 AM 113 / 61 75 97 % 12 10:50 AM / % 5 = Fully awake and oriented or at pre-proc level Procedural Medications Time Medication Dose Units Method Given By 10:19 AM Oxygen 2 L/min nasal cannula Channing Jones RN 10:23 AM Versed 1 mg Intravenous JuniorthornChanning judd RN 10:23 AM Fentanyl 50 mcg Intravenous IgnacioornChanning judd RN 10:32 AM Versed 0.5 mg Intravenous JuniorthornChanning judd RN 10:32 AM Fentanyl 25 mcg Intravenous Channing Jones RN 10:32 AM Versed 1 mg Intravenous IgnacioornChanning judd RN 10:32 AM Fentanyl 50 mcg Intravenous Channing Jones RN 10:35 AM Lidocaine 1% 19 ml Subcutaneous Laura Shelby MD ASA Classification: CLASS II- Mild systemic disease (i.e. well-controlled diabetes, hypertension, asthma, cigarette smoking) Gus Score Preprocedure Postprocedure Activity 2- Moves 4 extremities sustained head lift Activity 2- Moves 4 extremities sustained head lift Circulation 2- SBP +/= 20 points of pre-anesthetic level Circulation 2- SBP +/= 20 points of pre-anesthetic level Consciousness 2- Awake and alert oriented x 3 Consciousness 2- Awake and alert oriented x 3 O2 Saturation 2- Able to maintain O2 satruation of 92% on room air O2 Saturation 2- Able to maintain O2 satruation of 92% on room air Respiratory 2- Able to deep breathe and cough well Respiratory 2- Able to deep breathe and cough well Total Score 10 Total Score 10 Contrast Agent: Isovue Diagnostic Contrast: 75 ml Total Contrast: 75 ml Fluoro Dose: 393 mGy Procedure Log Time Note Enter By 10:17 AM 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 10:17 [facility] 10:17 AM Alo Payne RN Position: Monitor Time in: 10:17 [facility] 10:17 AM Jaskaran Boggs RT (R) Position: Scrub [facility] 10:17 [facility] Channing Jones RN Position: Director Financial Services Time in: 10:17 [facility] 10:18 AM Patient charges- Angio tray pack, Navilyst 3mm J, Pulse Oximetry and ACIST tubing and transducer [facility] 10:18 AM Physician arrived 10:18 [facility] 10:18 AM Estevan and ramesh completed [facility] 10:18 AM Sign in performed according to hospital policy. [email or web address] 10:18 AM Procedure start 10:18 [email or web address] 10:18 AM CathStat 10: AM Vitals capture started with the following parameters, Patient=Adult, Interval=5 min, Initial Qwwvbyim=458 mmHg, Deflation Rate=5 mmHg, Cuff placed on Right Arm 10: AM Time: 10: Oxygen on at 2 L/min per nasal cannula by Channing Jones RN 10: AM HR=77 bpm, POTN=272/74 mmhg, PiT1=771.0 %, Resp=14 B/min, Comment=nsr 10: AM Time: : Patient comfortable and pain free: Yes jcallihan 10: AM Time: 10:LOC: 5 = Fully awake and oriented or at pre-proc level jcallihan : AM Time: : Versed 1 mg Intravenous Given by Channing Jones RN : AM Time: : Fentanyl 50 mcg Intravenous Given by Channing Jones RN 10: AM Hair removed from procedure site in holding area using clippers. Bilateral groin prepped with Chloraprep by Jaskaran Boggs (R), then patient was draped. Skin intact. [email or web address] 10:24 AM Clinical Presentation: Unstable angina jcallihan 10:25 AM HR=77 bpm, YYKD=989/71 mmhg, VsA3=770.0 %, Resp=18 B/min, Comment=nsr 10:26 AM Pt pre-medicated with solu-cortef as ordered before [facility]. jcallihan 10:30 AM HR=80 bpm, SJSJ=695/74 mmhg, ZdP4=532.0 %, Resp=8 B/min, Comment=nsr 10:32 AM Time: 10:32 Versed 0.5 mg Intravenous Given by Channing Jones RN 10:32 AM Time: 10:32 Fentanyl 25 mcg Intravenous Given by Channing Jones RN 10:32 AM Time: 10:32 Versed 1 mg Intravenous Given by Channing Jones RN 10:32 AM Time: 10:32 Fentanyl 50 mcg Intravenous Given by Channing Jones RN 10:35 AM HR=72 bpm, GGCC=416/73 mmhg, SpO2=96.0 %, Resp=14 B/min, Comment=nsr 10:35 AM Time: 10:20LOC: 4 = Oriented but drowsy jcallihan 10:35 AM Time: 10:20 Patient comfortable and pain free: Yes jcallihan 10:35 AM Time out performed according to hospital policy jcallan 10:35 AM Time: 10:35 19 ml Lidocaine 1% to right groin Subcutaneous Given by Laura Shelby MD [facility] 10:36 AM Pressure channel 1 zeroed. 10:36 AM Micro-Introducer Kit utilized for sheath placement jcallan 10:36 AM Access obtained by percutaneous puncture. 6Fr 10cm Terumo [place] sheath placed in right Femoral artery. [id number] [facility] 10:39 AM hand injected 4 ml contrast, images obtained. jcallihan 10:40 AM HR=83 bpm, TXPJ=963/70 mmhg, CtL3=852.0 %, Resp=13 B/min, Comment=nsr 10:40 AM 5Fr FR 4 catheter inserted over the wire [facility] 10:41 AM RCA angiography performed in multiple views. jcallihan 10:42 AM Catheter removed [facility] 10:43 AM 5Fr FL 4 catheter inserted over the wire [facility] 10:44 AM LCA angiography performed in multiple views. jcallihan 10:45 AM HR=80 bpm, SSDT=532/75 mmhg, GtF8=144.0 %, Resp=19 B/min, Comment=nsr 10:46 AM Coronary Dominance: right jcallihan 10:47 AM Catheter removed jcallan 10:47 AM Recorded Pressure: LV, HR=99, Condition=Condition 1 (Left Ventricle) LV 101/18/19 10:48 AM Recorded Pressure: LV, Ao, HR=97, Condition=Condition 1 (Left Ventricle) LV 109/23/22, (Aorta) Ao 105/77/92 10:48 AM 5Fr Pigtail catheter inserted over the wire [facility] 10:48 AM Catheter selectively placed in left ventricle jcallan 10:50 AM HR=87 bpm, BNUO=208/72 mmhg, SpO2=99.0 %, Resp=14 B/min, Comment=nsr 10:50 AM Catheter removed jcallihan 10:50 AM Time: 10:35LOC: 4 = Oriented but drowsy jcallihan 10:50 AM Time: 10:35 Patient comfortable and pain free: Yes jcallihan 10:52 AM Wire removed jcallihan 10:52 AM additional groin shot, 4ml contrast injected. jcallihan 10:52 AM Lesion found in Mid LAD. Pre Stenosis: 50 Pre LUCIANO Flow: jcallihan 10:53 AM Mid/Distal Left Anterior Descending Coronary Artery and diagonal branches with 50% stenosis. If graft is supplying this area, 0 % stenosis jcallihan 10:53 AM Procedure completed at 10:53 jcallihan 10:53 AM Did you address LUCIANO flow and Dominance? Yes jcallihan 10:53 AM Sign out completed: Radiation Dose 393 mGy Fluoro Time: 2.2 Isovue 370 - 200ml contrast 75 ml given by Laura Shelby MD. Complications: NoneCardiac Rehab Consult needed: NoConfirmed administered medications: Yes jcallihan 10:54 AM Isovue 370 - 200ml,1 Bottle(s) used. jcallihan 10:54 AM Estimated Blood Loss: less than 20cc jcallihan 10:54 AM Post ECG NSR jcallihan 10:54 AM Post Blood Pressure 112/72 jcallihan 10:54 AM 10:54 Post Pulses Bilateral DP & PT 2+ jcallihan 10:54 AM Information taught Cardiac Cath [facility] 10:54 AM Education needs Procedure, Plan of Care, and Responsibilities of Patient in Care jcallihan 10:55 AM HR=75 bpm, ZPGK=414/73 mmhg, UlT8=438.0 %, Resp=21 B/min, Comment=nsr 10:55 AM ASA Class CLASS II- Mild systemic disease (i.e. well-controlled diabetes, hypertension, asthma, cigarette smoking) jcallihan 10:56 AM Learning barriers :None jcallihan 10:56 AM Education Methods Verbal [facility] 10:56 AM Education evaluation Able to repeat information [facility] 10:56 AM Plavix, Effient or Brilinta given No jcallihan 10:57 AM Family placed in consult room. jcallihan 10:57 AM Complications: None jcallihan 10:57 AM Fluoro Time: 2.2 jcallihan 10:57 AM Isovue 370 - 200ml contrast 75 ml given by Laura Shelby MD. allihan 10:57 AM Radiation Dose 393 mGy [facility] 11:00 AM HR=80 bpm, PQMC=980/40 mmhg, LtA5=924.0 %, Resp=5 B/min, Comment=nsr 11:03 AM Arterial sheath pulled using manual compression and V+ Pad for 15 minutes by Jaskaran Boggs RT (R) [facility] 11:03 AM Site status No bleeding/hematoma - Rt Groin as reported by Jaskaran Boggs RT (R) at 11:03 jcallan 11:03 AM Opsite applied [facility] 11:03 AM Report given to Nicole UNDERWOOD Pt taken to Room #22. 11:03 jcallihan 11:03 AM Patient out of room: 11:03 jcallihan 11:05 AM HR=75 bpm, TMPG=114/61 mmhg, SpO2=97.0 %, Resp=12 B/min, Comment=nsr 11:05 AM Time: 10:50 Patient comfortable and pain free: Yes jcallan 11:05 AM Time: 10:50LOC: 5 = Fully awake and oriented or at pre-proc level jcallihan 11:09 AM Vitals capture stopped. Complications Complication None None Hemodynamics Pressures Site Systolic/A Wave Diastolic/V Wave Mean LV 101 18 19 LV 109 23 22 AO 105 77 92 Post Procedure Information Blood Pressure: 112/72 mmHg Rhythm: NSR Post procedural instructions were given Closure Device Time Device Success/Fail 07/17/2017 10:57:00 AM Manual Compression Successful Site Checks Time Location Status Staff Sheath In? Note 11:03 AM Rt Groin No bleeding/hematoma Jaskaran Boggs RT (R) Pulses Time Site Pre-Procedure Post-Procedure Note 07/17/2017 9:57:00 AM Bilateral DP & PT 2+ 10:54:00 AM Bilateral DP & PT 2+ Updated by Alo Payne RN on 07/17/2017 11:11:31 AM electronically signed on 07/17/2017 11:12:03 AM with status of Final
--- NOTE | 2017-07-17 11:34 | Event Note ---
Date of Encounter: 07/17/17 Time of Encounter: 11:30 - Cardiology Event Note Per discussion with Dr. Shelby, [facility] with nonobstructive CAD. Medical management and risk factor modification reinforced. Cardiology will s/o, re-consult PRN, f/ u arranged. Patient and family verbalized understanding and agreed with plan. Discussed with primary service. Anticipate discharge home later today.
[2017-07-17 13:17] VITALS: BP 120/77
--- NOTE | 2017-07-17 13:45 | Discharge Summary ---
- NOTES TO OUTPATIENT PROVIDER Notes to Outpatient Provider: Patient to follow-up with cardiology as directed for continued medical management. Tobacco cessation advised. Patient has a history of adrenal hyperplasia syndrome and has been off steroids for at least the past 5 years. He reported he historically has been premedicated with steroids prior to surgeries. He was given a dose of stress steroids this morning before his catheterization. He needs to follow up with his primary care physician for further management Orders not resulted at time of discharge: Pending orders 07/16/17 07:45 NM sharlene perf SPECT multi [NM] Routine Date of Encounter: 07/17/17 Time of Encounter: 13:43 - Discharge Diagnosis (1) Chest pain Priority: Primary Status: Acute Comments: Patient had a stress test on 07/16/17 that was abnormal. Was recommended he received proceed to a left heart catheter which was completed 07/17/17. Left heart catheter with nonobstructive CAD. Medical management and risk factor modification was reinforced and cardiology will follow up as an outpatient. Patient and family verbalized understanding and agreed with this plan is cleared for discharge home later today. Qualifiers: Chest pain type: unspecified Qualified Code(s): R07.9 - Chest pain, unspecified (2) COPD (chronic obstructive pulmonary disease) Priority: Secondary Status: Chronic Qualifiers: COPD type: unspecified COPD Qualified Code(s): J44.9 - Chronic obstructive pulmonary disease, unspecified (3) HTN (hypertension) Priority: Secondary Status: Chronic Qualifiers: Hypertension type: essential hypertension Qualified Code(s): I10 - Essential (primary) hypertension (4) Polycythemia Priority: Secondary Status: Chronic (5) Smoker Priority: Primary Status: Chronic Hospital course: Mr. Brown is a 41 year old male who presented to the emergency room with a complaint of left-sided chest pain that has been ongoing over the past year. He had concern for coronary artery disease as he is a daily smoker with a history of hypertension. 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 Cardiac enzymes were negative. He was started on aspirin. He required no oxygen. He had a positive stress test and went for left heart catheter today that showed nonobstructive CAD per Dr. Shelby. Medical management and risk factor modification was advised and reinforced. He will follow up with cardiology as directed. Discussed with the patient and his and they verbalized understanding he will be discharged today. Also of note the patient apparently has a history of adrenal hyperplasia syndrome but has been off steroids for at least the past 5 years. He reported he had been historically premedicated with steroids prior to surgeries. He was given a dose of stress steroids prior to his left heart catheter today. He will be discharged with strong encouragement to follow up with her primary care physician for further management of this condition. His blood pressure has been stable. Echocardiogram was obtained and reviewed with LVEF of 60%, normal LV chamber size wall thickness and function. Mild left ventricular diastolic dysfunction, normal right ventricular structure and function with no evidence of pulmonary hyper-tension and no significant valvular dysfunction. Last echo findings were all wall segments showed normal motion. Once again strongly encouraged to follow up with the primary care physician. 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 Time spent discussing smoking cessation with patient: 3 to 10 minutes - Time Spent with Patient Total time spent providing and/or coordinating discharge services: Less than 30 minutes - Discharge Medications Home Medications: Albuterol Sulfate [Albuterol Inhaler] 1 puff IH AD 12/08/16 [History] Gabapentin [Neurontin] 800 mg PO TID 12/08/16 [History] Tiotropium [Spiriva] 1 puff IH BID 12/08/16 [History] Aspirin [Lo-Dose Aspirin EC] 81 mg PO DAILY 12/24/16 [History] Cholecalciferol (D-3) [Vitamin D] 1,000 unit PO DAILY 12/24/16 [History] Multivitamin [One Daily Multivitamin] 1 each PO DAILY 12/24/16 [History] Shiner-3/Dha/Epa/Fish Oil [Fish Oil 1,000 mg Softgel] 1 each PO DAILY 12/24/16 [ History] Vitamin E (Dl,Tocopheryl Acet) [Vitamin E] 1,000 unit PO DAILY 12/24/16 [History ] Buprenorphine HCl/Naloxone HCl [Suboxone 8 mg-2 mg Sl Film] 1 film PO BID [History] Ciclopirox [Penlac] 1 appl TP DAILY 07/15/17 [History] Fluticasone/Salmeterol [Advair 250-50 Diskus] 1 puff IH BID 07/15/17 [History] Ibuprofen [Motrin] 800 mg PO Q8HR PRN 07/15/17 [History] Omeprazole [PriLOSEC] 40 mg PO DAILY 07/15/17 [History] Ranitidine HCl [Zantac] 300 mg PO DAILY 07/15/17 [History] Ropinirole HCl [Requip] 0.5 mg PO HS 07/15/17 [History] Allergies/Adverse Reactions: 3 Allergy/AdvReac Type Severity Reaction Status Date / Time Penicillins Allergy Anaphylaxis Verified 12/24/16 08:42 Date of admission: 07/15/17 13:41 Primary care physician: Chuy Sylvester MD Consults: 07/16/17 13:08 Consult to Cardiology [CONS] Routine Comment: Consulting Provider: Cardiology [facility] Reason for Consult: abnormal stress, known history CAD Time Notified: 13:29 Call Completed: Yes Discharging clinician: Roselyn Angeles Anticipated date of discharge: 07/17/17 - Constitutional Vitals: Temp Pulse Resp BP Pulse Ox 98.8 F 85 18 120/77 99 07/17/17 07:47 07/17/17 13:15 07/17/17 13:15 07/17/17 13:15 07/17/17 13:15 General appearance: Present: cooperative, A&O X 3, pleasant, no acute distress, answers questions appropriately - Head Head exam: Present: atraumatic, normocephalic - Eye Eye exam: Present: PERRL, conjuntiva pink, sclera anicteric Pupils: Present: PERRL - Neck Neck exam general surgery: Present: supple, trachea midline. Absent: lymphadenopathy - Respiratory Respiratory exam: Present: decreased breath sounds, CTAB. Absent: accessory muscle use, rales, rhonchi, wheezes - Cardiovascular Cardiovascular exam: Present: RRR, +S1, +S2. Absent: diastolic murmur, gallop, rubs, systolic murmur - GI/Abdominal GI/Abdominal exam: Present: normal bowel sounds, soft, no peritoneal signs. Absent: distended, tenderness - Extremities Exam Extremities exam: Present: warm, radial pulses palpable and symmetrical. Absent : calf tenderness, cyanotic, pedal edema - Neurological Exam Neurological exam: Present: alert, CN II-XII intact, normal gait, oriented X3, no focal deficits, strengths equal and symetr throughout. Absent: pronater drift, facial droop, speech deficit - Skin Skin exam: Present: dry, intact, normal color, warm - Patient Status Disposition: Home, Self-Care Functional capacity at discharge: independent ambulation Overall status at discharge: patient is back to baseline - Discharge Instructions Follow Up With: Chuy Sylvester MD [Primary Care Provider] - - Diet and Activity Activity: increase activity as tolerated, resume usual activities as tolerated Diet: low fat, low cholesterol, low salt diet
[2017-07-17] MEDS ORDERED: Hydrocortisone Sodium Succ 100 MG/2 ML VIAL IVP SCH (16:00)
== END 2017-07-17 15:20 | disposition home or self-care (01) ==
LOC: EMEROO 11:04 → 3BNU 11:04
PROVIDERS: ADMIT Family Medicine; ATTEND Registered Nurse